=== PATIENT | female | born 1935 | race Caucasian/White ===

== ENCOUNTER 2019-08-02 20:30 | Inpatient (IN) | payer MEDICARE, OTHER ==
[~2019-08-02] VITALS: Ht 157.5 cm; Wt 50.1 kg
[2019-08-02] MEDS ORDERED: PANT20TA2 PO (21:23)
[2019-08-02] MEDS ORDERED: FERR324T5 PO (21:24)
[2019-08-02] MEDS ORDERED: CALC-451 PO (21:30)
[2019-08-02] MEDS ORDERED: PRED10TA14 PO (21:31)
[2019-08-02] MEDS ORDERED: LEVO100T5 PO (21:32)
[2019-08-02] MEDS ORDERED: FURO40TA6 PO (21:33)
[2019-08-02] MEDS ORDERED: POTA20PA25 PO (21:33)
--- NOTE | 2019-08-02 22:13 | NUR ---
PT RESTING COMFORTABLY. FAMILY AT BEDSIDE. MONITOR IN PLACE.
[2019-08-02 23:55] VITALS: BP 109/57
[2019-08-03] MEDS ORDERED: TRAZODONE 50MG TABLET PO PRN
[2019-08-03] MEDS ORDERED: LIDODERM 5% PATCH TD PRN
[2019-08-03] MEDS ORDERED: ONDANSETRON ODT 4 MG PO PRN
[2019-08-03] MEDS ORDERED: DOCUSATE 100 MG CAPSULE PO PRN
[2019-08-03] MEDS ORDERED: CALCIUM/VITAMIN D3 250-125 TABLET PO SCH (01:00)
[2019-08-03] MEDS ORDERED: PANT40TA5 PO (01:36)
[2019-08-03 03:33] VITALS: BP 97/58
[2019-08-03 05:23] LABS: BASOPHILS # (AUTO) 0.02 x10^3/uL (0-0.1); BASOPHILS % (AUTO) 0 % (0-1); EOSINOPHILS # (AUTO) 0.29 x10^3/uL (0-0.4); EOSINOPHILS % (AUTO) 4 % (1-7); LYMPHOCYTES # (AUTO) 0.46 x10^3/uL (1-3.4); LYMPHOCYTES % (AUTO) 6 % (22-44); MD NO; MEAN CORPUSCULAR HEMOGLOBIN 32.4 pg (27.0-34.8); MEAN CORPUSCULAR HGB CONC 32.8 g/dL (32.4-35.8); MEAN CORPUSCULAR VOLUME 98.8 fL (80-100); MONOCYTES # (AUTO) 0.26 x10^3/uL (0.2-0.8); MONOCYTES % (AUTO) 4 % (2-9); NEUTROPHILS # (AUTO) 6.17 x10^3/uL (1.8-6.8); NEUTROPHILS % (AUTO) 86 % (42-75); PLATELET COUNT 256 x10^3/uL (130-400); RED CELL DISTRIBUTION WIDTH 13.8 % (9.6-15.2)
[2019-08-03 05:36] LABS: ANION GAP 12 mmol/L (5-15); CALCIUM 7.5 mg/dL (8.5-10.1); CHLORIDE 105 mmol/L (98-107); CREATININE 1.27 mg/dL (0.55-1.02)
[2019-08-03 07:14] VITALS: BP 118/65
[2019-08-03] MEDS: PANTOPRAZOLE 20MG TABLET PO SCH (08:14)
[2019-08-03] MEDS: LEVOTHYROXINE 100 MCG TABLET PO SCH (08:14)
[2019-08-03] MEDS: POTASSIUM CHLORIDE 20 MEQ PACKET PO SCH (08:15)
[2019-08-03] MEDS: FUROSEMIDE 20 MG/2 ML IV SCH ×2 (08:15→16:37)
[2019-08-03] MEDS: FERROUS SULFATE 325 MG TABLET PO SCH (08:15)
[2019-08-03 10:10] VITALS: BP 117/73
[2019-08-03 11:11] LABS: CLOSTRIDIUM DIFFICILE ANTIGEN NEGATIVE
[2019-08-03 11:13] LABS: CLOSTRIDIUM DIFFICILE TOXIN INDETERMINATE (Negative)
[2019-08-03 12:47] VITALS: BP 119/70
[2019-08-03 12:52] LABS: CLOSTRIDIUM DIFFICILE TOXIN ANTIG NEG/TOXIN POS (Negative)
[2019-08-03 12:56] LABS: CLOSTRIDIUM DIFFICILE ANTIGEN ANTIG NEG/TOXIN POS
[2019-08-03] MEDS: VANCOMYCIN 50 MG/ML ORAL SUSP PO SCH ×2 (15:38→22:16)
[2019-08-03 16:36] VITALS: BP 109/65
[2019-08-03 19:51] VITALS: BP 127/66
[2019-08-04 01:34] VITALS: BP 99/60
[2019-08-04] MEDS: VANCOMYCIN 50 MG/ML ORAL SUSP PO SCH ×3 (03:55→15:08)
[2019-08-04 05:02] LABS: BASOPHILS # (AUTO) 0.01 x10^3/uL (0-0.1); BASOPHILS % (AUTO) 0 % (0-1); EOSINOPHILS # (AUTO) 0.17 x10^3/uL (0-0.4); EOSINOPHILS % (AUTO) 3 % (1-7); LYMPHOCYTES # (AUTO) 0.65 x10^3/uL (1-3.4); LYMPHOCYTES % (AUTO) 11 % (22-44); MD NO; MEAN CORPUSCULAR HEMOGLOBIN 32.5 pg (27.0-34.8); MEAN CORPUSCULAR HGB CONC 32.7 g/dL (32.4-35.8); MEAN CORPUSCULAR VOLUME 99.2 fL (80-100); MEAN PLATELET VOLUME 7.7 fL (7.4-10.4); MONOCYTES # (AUTO) 0.35 x10^3/uL (0.2-0.8); MONOCYTES % (AUTO) 6 % (2-9); NEUTROPHILS # (AUTO) 4.89 x10^3/uL (1.8-6.8); NEUTROPHILS % (AUTO) 80 % (42-75); PLATELET COUNT 287 x10^3/uL (130-400); RED BLOOD COUNT 3.45 x10^6/uL (3.82-5.3); RED CELL DISTRIBUTION WIDTH 13.6 % (9.6-15.2)
[2019-08-04 05:11] LABS: ALANINE AMINOTRANSFERASE 11 U/L (12-78); ALBUMIN 2.2 g/dL (3.4-5.0); ANION GAP 8 mmol/L (5-15); CHLORIDE 103 mmol/L (98-107); CREATININE 1.19 mg/dL (0.55-1.02)
[2019-08-04 05:19] LABS: ALKALINE PHOSPHATASE 76 U/L (45-117); BILIRUBIN,TOTAL 0.5 mg/dL (0.2-1.0); TOTAL PROTEIN 5.5 g/dL (6.4-8.2)
[2019-08-04 07:42] VITALS: BP 120/68
[2019-08-04] MEDS: POTASSIUM CHLORIDE 20 MEQ PACKET PO SCH (07:44)
[2019-08-04] MEDS: LEVOTHYROXINE 100 MCG TABLET PO SCH (07:44)
[2019-08-04] MEDS: PANTOPRAZOLE 20MG TABLET PO SCH (07:44)
[2019-08-04] MEDS: FUROSEMIDE 20 MG/2 ML IV SCH ×2 (07:45→16:27)
[2019-08-04] MEDS: FERROUS SULFATE 325 MG TABLET PO SCH (07:45)
[2019-08-04] MEDS ORDERED: LISINOPRIL 10 MG TABLET PO SCH (09:00)
[2019-08-04] MEDS: HEPARIN 5,000 UNITS/ML, 1ML SQ SCH ×2 (15:08→22:46)
[2019-08-04 15:11] VITALS: BP 110/66
[2019-08-04] MEDS: POTASSIUM CHLORIDE 20 MEQ TAB.ER.PRT PO SCH (16:27)
[2019-08-04] MEDS ORDERED: AZITHROMYCIN 500 MG TABLET PO ONE (17:00)
[2019-08-04] MEDS: AMPICILLIN/SULBACTAM 3 GM in SODIUM CHLORIDE 0.9% 100 ML IV SCH (18:06)
[2019-08-04 19:19] VITALS: BP 115/66
[2019-08-05] MEDS: AMPICILLIN/SULBACTAM 3 GM in SODIUM CHLORIDE 0.9% 100 ML IV SCH ×4 (00:01→17:53)
[2019-08-05 00:38] VITALS: BP 103/63
[2019-08-05 05:20] LABS: BASOPHILS # (AUTO) 0.04 x10^3/uL (0-0.1); BASOPHILS % (AUTO) 1 % (0-1); EOSINOPHILS # (AUTO) 0.22 x10^3/uL (0-0.4); EOSINOPHILS % (AUTO) 3 % (1-7); LYMPHOCYTES # (AUTO) 0.92 x10^3/uL (1-3.4); LYMPHOCYTES % (AUTO) 14 % (22-44); MD NO; MEAN CORPUSCULAR HEMOGLOBIN 32.3 pg (27.0-34.8); MEAN CORPUSCULAR HGB CONC 32.8 g/dL (32.4-35.8); MEAN CORPUSCULAR VOLUME 98.6 fL (80-100); MEAN PLATELET VOLUME 8.3 fL (7.4-10.4); MONOCYTES # (AUTO) 0.45 x10^3/uL (0.2-0.8); MONOCYTES % (AUTO) 7 % (2-9); NEUTROPHILS % (AUTO) 76 % (42-75); PLATELET COUNT 296 x10^3/uL (130-400); RED BLOOD COUNT 3.43 x10^6/uL (3.82-5.3); RED CELL DISTRIBUTION WIDTH 13.7 % (9.6-15.2)
[2019-08-05 05:30] LABS: ANION GAP 5 mmol/L (5-15); CALCIUM 8.1 mg/dL (8.5-10.1); CHLORIDE 107 mmol/L (98-107); CREATININE 1.02 mg/dL (0.55-1.02)
[2019-08-05] MEDS: HEPARIN 5,000 UNITS/ML, 1ML SQ SCH ×3 (06:29→22:07)
[2019-08-05 06:53] VITALS: BP 125/69
[2019-08-05] MEDS: POTASSIUM CHLORIDE 20 MEQ PACKET PO SCH (08:50)
[2019-08-05] MEDS: AZITHROMYCIN 250 MG TABLET PO SCH (08:50)
[2019-08-05] MEDS: FERROUS SULFATE 325 MG TABLET PO SCH (08:50)
[2019-08-05] MEDS: FUROSEMIDE 20 MG/2 ML IV SCH (08:50)
[2019-08-05] MEDS: POTASSIUM CHLORIDE 20 MEQ TAB.ER.PRT PO SCH (08:50)
[2019-08-05] MEDS: PANTOPRAZOLE 20MG TABLET PO SCH (08:50)
[2019-08-05] MEDS: LEVOTHYROXINE 100 MCG TABLET PO SCH (08:50)
[2019-08-05 14:14] VITALS: BP 102/64
[2019-08-05] MEDS: NEUTRA PHOS K 250 MG TABLET PO SCH ×2 (16:00→20:29)
[2019-08-05 18:57] VITALS: BP 109/68
[2019-08-06] MEDS: AMPICILLIN/SULBACTAM 3 GM in SODIUM CHLORIDE 0.9% 100 ML IV SCH ×3 (00:10→12:00)
[2019-08-06 02:20] VITALS: BP 104/65
[2019-08-06 05:12] LABS: BASOPHILS # (AUTO) 0.02 x10^3/uL (0-0.1); BASOPHILS % (AUTO) 0 % (0-1); EOSINOPHILS # (AUTO) 0.28 x10^3/uL (0-0.4); EOSINOPHILS % (AUTO) 4 % (1-7); LYMPHOCYTES # (AUTO) 1.08 x10^3/uL (1-3.4); LYMPHOCYTES % (AUTO) 15 % (22-44); MD NO; MEAN CORPUSCULAR HEMOGLOBIN 32.4 pg (27.0-34.8); MEAN CORPUSCULAR HGB CONC 32.9 g/dL (32.4-35.8); MEAN CORPUSCULAR VOLUME 98.7 fL (80-100); MEAN PLATELET VOLUME 7.6 fL (7.4-10.4); MONOCYTES # (AUTO) 0.41 x10^3/uL (0.2-0.8); MONOCYTES % (AUTO) 6 % (2-9); NEUTROPHILS # (AUTO) 5.23 x10^3/uL (1.8-6.8); NEUTROPHILS % (AUTO) 75 % (42-75); PLATELET COUNT 322 x10^3/uL (130-400); RED CELL DISTRIBUTION WIDTH 14.1 % (9.6-15.2)
[2019-08-06 05:21] LABS: CHLORIDE 108 mmol/L (98-107)
[2019-08-06 05:34] LABS: ANION GAP 6 mmol/L (5-15); CALCIUM 7.7 mg/dL (8.5-10.1); CHOL/HDL RATIO 7.6; CHOLESTEROL, TOTAL 137 mg/dL (140-239); CREATININE 0.95 mg/dL (0.55-1.02); HDL CHOL % 13 % (28-40); HDL CHOLESTEROL (DIRECT) 18 mg/dL (40-60); LDL CHOLESTEROL,CALCULATED 90 mg/dL (54-169); TRIGLYCERIDES 145 mg/dL (50-200); VLDL CHOLESTEROL 29 mg/dL (0-25)
[2019-08-06] MEDS ORDERED: ASPIRIN 81 MG TABLET EC PO SCH (06:00)
[2019-08-06] MEDS ORDERED: OMEPRAZOLE 20 MG CAPSULE.DR PO SCH (06:00)
[2019-08-06] MEDS ORDERED: ACETAMINOPHEN 325 MG TABLET PO PRN (06:00)
[2019-08-06] MEDS ORDERED: ACETAMINOPHEN 325 MG TABLET ONE (06:01)
[2019-08-06] MEDS: HEPARIN 5,000 UNITS/ML, 1ML SQ SCH (06:03)
[2019-08-06 06:54] VITALS: BP 104/63
[2019-08-06] MEDS: LEVOTHYROXINE 100 MCG TABLET PO SCH (07:47)
[2019-08-06] MEDS: PANTOPRAZOLE 20MG TABLET PO SCH (07:48)
[2019-08-06] MEDS: FERROUS SULFATE 325 MG TABLET PO SCH (07:48)
[2019-08-06] MEDS: NEUTRA PHOS K 250 MG TABLET PO SCH (07:48)
[2019-08-06] MEDS: AZITHROMYCIN 250 MG TABLET PO SCH (07:48)
[2019-08-06] MEDS ORDERED: FUROSEMIDE 20 MG TABLET PO SCH (09:00)
[2019-08-06] MEDS ORDERED: POTASSIUM CHLORIDE 20 MEQ PACKET PO SCH (09:00)
[2019-08-06] MEDS ORDERED: AZIT250T89 PO (12:28)
[2019-08-06] MEDS ORDERED: AMOX1TAB61 PO (12:28)
[2019-08-06] MEDS ORDERED: ATOR20TA37 PO (12:28)
[2019-08-06 14:00] VITALS: BP 106/64
[2019-08-06] MEDS ORDERED: POTA20PA25 PO (14:24)
[2019-08-06] MEDS ORDERED: FURO40TA6 PO (14:24)
[2019-08-06] MEDS ORDERED: ATORVASTATIN 20 MG TABLET PO SCH (21:00)
== END 2019-08-06 15:15 | disposition home health service (06) | DRG 177 ==
LOC: ED 22:48 → EDIP 22:50 → 4WST 23:36 → DCLOUNGE 08-06 14:32
PROVIDERS: ADMIT Family Medicine; ATTEND Internal Medicine
DX: J15.6 Pneumonia due to other Gram-negative bacteria (principal); I50.33 Acute on chronic diastolic (congestive) heart failure; J96.00 Acute respiratory failure, unspecified whether with hypoxia or hypercapnia; L03.116 Cellulitis of left lower limb; I13.0 Hypertensive heart and chronic kidney disease with heart failure and stage 1 through stage 4 chronic kidney disease, or unspecified chronic kidney disease; J44.0 Chronic obstructive pulmonary disease with (acute) lower respiratory infection; N17.9 Acute kidney failure, unspecified; J18.9 Pneumonia, unspecified organism; M06.9 Rheumatoid arthritis, unspecified; M35.3 Polymyalgia rheumatica; E87.6 Hypokalemia; E03.9 Hypothyroidism, unspecified; E61.1 Iron deficiency; F17.200 Nicotine dependence, unspecified, uncomplicated; I27.20 Pulmonary hypertension, unspecified; I35.0 Nonrheumatic aortic (valve) stenosis; I73.9 Peripheral vascular disease, unspecified; K21.9 Gastro-esophageal reflux disease without esophagitis; M81.0 Age-related osteoporosis without current pathological fracture; N18.9 Chronic kidney disease, unspecified; M19.90 Unspecified osteoarthritis, unspecified site; T50.2X5A Adverse effect of carbonic-anhydrase inhibitors, benzothiadiazides and other diuretics, initial encounter; Y92.89 Other specified places as the place of occurrence of the external cause; Z60.2 Problems related to living alone; B96.89 Other specified bacterial agents as the cause of diseases classified elsewhere; Z79.899 Other long term (current) drug therapy
CPT/HCPCS: 36415; 71045; 80048; 80053; 80061; 83735; 84100; 84145; 84439; 84443; 85025; 87070; 87205; 87324; 87493; 93005; 93306; 93922; 93925; 99285; G0378; J0295; J1644; J3370; J1940; J7512

== ENCOUNTER → 2019-09-21 | Outpatient (CLI) | payer MEDICARE, OTHER ==
[~2019-09-21] MED LIST: AMOX1TAB61 PO; ATOR20TA37 PO; AZIT250T89 PO; CALC-451 PO; FERR324T5 PO; FURO40TA6 PO; LEVO100T5 PO; PANT20TA2 PO; PANT40TA5 PO; POTA20PA25 PO; PRED10TA14 PO
== END | disposition home or self-care (01) ==
LOC: RAD 17:06
PROVIDERS: ATTEND Internal Medicine
DX: M17.12 Unilateral primary osteoarthritis, left knee (principal)

== ENCOUNTER 2020-02-09 10:06 | Outpatient (CLI) | payer MEDICARE, OTHER ==
[~2020-02-09 10:06] MED LIST changes: -PANT40TA5 PO; +PANT40TA6 PO
[2020-02-13] MEDS ORDERED: ASPI-496 PO (01:32)
[2020-02-13] MEDS ORDERED: OMEP40CA42 PO (01:32)
[2020-02-13] MEDS ORDERED: FURO40TA6 PO (01:32)
[2020-02-13] MEDS ORDERED: POTA20TA91 PO (01:32)
[2020-02-13] MEDS ORDERED: CALC-492 PO (01:32)
[2020-02-13] MEDS ORDERED: MULT-257 PO (01:32)
[2020-02-13] MEDS ORDERED: CHOL10003 PO (01:32)
[2020-02-13] MEDS ORDERED: ACET325S PO (02:53)
[2020-02-13] MEDS ORDERED: POLY454P4 PO (02:53)
[2020-02-13] MEDS ORDERED: PEG15DRO2 OP (02:53)
[2020-02-17] MEDS ORDERED: PRED5TAB PO (12:09)
== END 2020-02-09 23:59 | disposition home or self-care (01) ==
LOC: CFH 10:06
PROVIDERS: ATTEND Internal Medicine Cardiovascular Disease
DX: I08.3 Combined rheumatic disorders of mitral, aortic and tricuspid valves (principal)
CPT/HCPCS: 93306

== ENCOUNTER 2020-02-20 04:51 | Emergency (ER) | payer MEDICARE, OTHER ==
[~2020-02-20] VITALS: Ht 167.6 cm; Wt 55.0 kg
[~2020-02-20 04:51] MED LIST changes: +ACET325S PO; +ASPI-496 PO; +CALC-492 PO; +CHOL10003 PO; +MULT-257 PO; +OMEP40CA42 PO; +PANT40TA5 PO; -PANT40TA6 PO; +PEG15DRO2 OP; +POLY454P4 PO; +POTA20TA91 PO; +PRED5TAB PO
[2020-02-20] MEDS ORDERED: SODIUM CHLORIDE FLUSH 10ML SYR IVF ONE (05:30)
[2020-02-20 06:09] LABS: MICROSCOPIC NOT IND
--- NOTE | 2020-02-20 06:10 | NUR ---
IV STARTED IN RAC. BLOOD CULTURES DRAWN AND SENT. STRAIGHT CATH PERFORMED, PT TOLERATED VERY WELL. NO SWELLING, REDNESS, OR TENDERNESS NOTED TO URETHRA OR SURROUNDING STRUCTURES. PT PROVIDED WITH WARM BLANKETS. DENIES ANY FURTHER NEEDS OR CONCERNS, CALL LIGHT IN REACH.
[2020-02-20 06:30] LABS: BASOPHILS # (AUTO) 0.04 x10^3/uL (0-0.1); BASOPHILS % (AUTO) 0 % (0-1); EOSINOPHILS # (AUTO) 0.35 x10^3/uL (0-0.4); EOSINOPHILS % (AUTO) 3 % (1-7); LYMPHOCYTES # (AUTO) 1.77 x10^3/uL (1-3.4); LYMPHOCYTES % (AUTO) 17 % (22-44); MD NO; MEAN CORPUSCULAR HEMOGLOBIN 33.4 pg (27.0-34.8); MEAN CORPUSCULAR HGB CONC 33.3 g/dL (32.4-35.8); MEAN CORPUSCULAR VOLUME 100.4 fL (80-100); MEAN PLATELET VOLUME 6.9 fL (7.4-10.4); MONOCYTES # (AUTO) 1.04 x10^3/uL (0.2-0.8); MONOCYTES % (AUTO) 10 % (2-9); NEUTROPHILS # (AUTO) 7.55 x10^3/uL (1.8-6.8); NEUTROPHILS % (AUTO) 70 % (42-75); PLATELET COUNT 487 x10^3/uL (130-400); RED BLOOD COUNT 2.97 x10^6/uL (3.82-5.3); RED CELL DISTRIBUTION WIDTH 15.1 % (9.6-15.2)
[2020-02-20 06:39] LABS: ALBUMIN 2.4 g/dL (3.4-5.0); ANION GAP 8 mmol/L (5-15); CALCIUM 7.9 mg/dL (8.5-10.1); CHLORIDE 109 mmol/L (98-107)
[2020-02-20 06:43] LABS: ALANINE AMINOTRANSFERASE 146 U/L (12-78); ALKALINE PHOSPHATASE 91 U/L (45-117); BILIRUBIN,TOTAL 0.5 mg/dL (0.2-1.0); CREATININE 0.93 mg/dL (0.55-1.02)
--- NOTE | 2020-02-20 06:59 | NUR ---
Took report from Renuka Barber RN, assume care at this time.
[2020-02-20] MEDS ORDERED: POTASSIUM CHLORIDE 20 MEQ TAB.ER.PRT ONE (07:21)
[2020-02-20] MEDS ORDERED: POTASSIUM CHLORIDE 20 MEQ TAB.ER.PRT PO ONE (07:30)
--- NOTE | 2020-02-20 08:15 | NUR ---
CALLED [facility] TO SET UP TRANSPORTATION.
[2020-02-20 08:44] VITALS: BP 119/54
== END 2020-02-20 08:41 | disposition home or self-care (01) ==
LOC: ED 06:42
DX: R33.9 Retention of urine, unspecified (principal); R10.9 Unspecified abdominal pain; R30.0 Dysuria; E03.9 Hypothyroidism, unspecified; M19.90 Unspecified osteoarthritis, unspecified site
CPT/HCPCS: 36415; 51702; 80053; 81003; 83605; 85025; 87040; 99284

== ENCOUNTER 2020-03-05 03:07 | Inpatient (IN) | payer MEDICARE, OTHER ==
[~2020-03-05] VITALS: Ht 167.6 cm; Wt 48.6 kg
--- NOTE | 2020-03-05 03:15 | NUR ---
JAMES RUSSELL FROM [facility] FOR INABILITY TO URINATE FOR APPROX 24 HOURS. LOWER AND PAIN RATED 7/10. BLADDER SCAN IN ED REVEALS APPROX 340ML URINE IN BLADDER. Addendum: 03/05/20 at 0342 by BDICECCO lower abd pain rated 7/10
[2020-03-05] MEDS ORDERED: MORPHINE SULFATE 4 MG/ML, 1ML IVPush ONE (05:00)
[2020-03-05] MEDS ORDERED: ONDANSETRON 2MG/ML, 2ML IVPush ONE (05:00)
[2020-03-05 05:03] LABS: BASOPHILS # (AUTO) 0.02 x10^3/uL (0-0.1); BASOPHILS % (AUTO) 0 % (0-1); EOSINOPHILS # (AUTO) 0.27 x10^3/uL (0-0.4); EOSINOPHILS % (AUTO) 3 % (1-7); LYMPHOCYTES # (AUTO) 2.06 x10^3/uL (1-3.4); LYMPHOCYTES % (AUTO) 24 % (22-44); MD NO; MEAN CORPUSCULAR HEMOGLOBIN 33.5 pg (27.0-34.8); MEAN CORPUSCULAR HGB CONC 33.1 g/dL (32.4-35.8); MEAN CORPUSCULAR VOLUME 101.2 fL (80-100); MEAN PLATELET VOLUME 7.9 fL (7.4-10.4); MONOCYTES # (AUTO) 0.74 x10^3/uL (0.2-0.8); MONOCYTES % (AUTO) 9 % (2-9); NEUTROPHILS % (AUTO) 65 % (42-75); PLATELET COUNT 375 x10^3/uL (130-400); RED BLOOD COUNT 3.18 x10^6/uL (3.82-5.3)
--- NOTE | 2020-03-05 05:03 | NUR ---
bennett inserted and draining clear/yellow urine. pt states she is still having pain in lower abd. orders recieved for pain meds and pt to be medicated for pain
[2020-03-05 05:06] LABS: MICROSCOPIC NOT IND
[2020-03-05] MEDS ORDERED: TAMS-11 PO (05:07)
[2020-03-05] MEDS ORDERED: MORPHINE SULFATE 4 MG/ML, 1ML ONE (05:08)
[2020-03-05] MEDS ORDERED: ONDANSETRON 2MG/ML, 2ML ONE (05:09)
[2020-03-05 05:13] LABS: ANION GAP 6 mmol/L (5-15); CALCIUM 8.3 mg/dL (8.5-10.1); CHLORIDE 105 mmol/L (98-107); CREATININE 1.11 mg/dL (0.55-1.02)
--- NOTE | 2020-03-05 07:04 | NUR ---
report received from shawnee hurley.
--- NOTE | 2020-03-05 07:46 | NUR ---
REPORT GIVEN TO VERNA LI. ALL QUESTIONS ANSWERED.
[2020-03-05] MEDS ORDERED: ONDANSETRON 2MG/ML, 2ML IVPush PRN (08:00)
[2020-03-05] MEDS: OMEPRAZOLE 20 MG CAPSULE.DR PO SCH (08:00)
[2020-03-05] MEDS ORDERED: MELATONIN 5 MG TABLET PO PRN (08:00)
[2020-03-05] MEDS ORDERED: ENALAPRILAT 1.25 MG/ML, 2ML IVPush PRN (08:00)
[2020-03-05] MEDS ORDERED: ONDANSETRON ODT 4 MG PO PRN (08:00)
[2020-03-05] MEDS: MULTIVITAMIN 1 TABLET PO SCH (08:56)
[2020-03-05] MEDS: CHOLECALCIFEROL 1,000 UNIT TABLET PO SCH (08:57)
[2020-03-05] MEDS: DOCUSATE 100 MG CAPSULE PO SCH ×2 (08:57→21:23)
[2020-03-05] MEDS: LEVOTHYROXINE 100 MCG TABLET PO SCH (09:00)
[2020-03-05] MEDS: TAMSULOSIN 0.4 MG CAP.ER.24H PO SCH (09:00)
[2020-03-05] MEDS: LACTATED RINGERS 1,000 ML IV SCH ×2 (09:00→22:05)
[2020-03-05 09:59] VITALS: BP 107/63
[2020-03-05 12:19] VITALS: BP 92/52
[2020-03-05 19:12] VITALS: BP 114/69
[2020-03-05] MEDS: ATORVASTATIN 20 MG TABLET PO SCH (21:23)
[2020-03-06 02:05] VITALS: BP 112/69
[2020-03-06 04:47] LABS: BASOPHILS # (AUTO) 0.03 x10^3/uL (0-0.1); BASOPHILS % (AUTO) 0 % (0-1); EOSINOPHILS # (AUTO) 0.41 x10^3/uL (0-0.4); EOSINOPHILS % (AUTO) 5 % (1-7); LYMPHOCYTES # (AUTO) 1.73 x10^3/uL (1-3.4); LYMPHOCYTES % (AUTO) 19 % (22-44); MD NO; MEAN CORPUSCULAR HEMOGLOBIN 33.3 pg (27.0-34.8); MEAN CORPUSCULAR VOLUME 100.9 fL (80-100); MONOCYTES # (AUTO) 0.63 x10^3/uL (0.2-0.8); MONOCYTES % (AUTO) 7 % (2-9); NEUTROPHILS % (AUTO) 69 % (42-75); PLATELET COUNT 333 x10^3/uL (130-400); RED BLOOD COUNT 2.93 x10^6/uL (3.82-5.3); RED CELL DISTRIBUTION WIDTH 14.6 % (9.6-15.2)
[2020-03-06 05:02] LABS: ANION GAP 4 mmol/L (5-15); CALCIUM 8.5 mg/dL (8.5-10.1); CHLORIDE 107 mmol/L (98-107)
[2020-03-06 05:04] LABS: CREATININE 1.03 mg/dL (0.55-1.02)
[2020-03-06] MEDS: OMEPRAZOLE 20 MG CAPSULE.DR PO SCH (06:41)
[2020-03-06 07:45] VITALS: BP 148/80
[2020-03-06] MEDS: DOCUSATE 100 MG CAPSULE PO SCH ×2 (07:56→20:01)
[2020-03-06] MEDS: CHOLECALCIFEROL 1,000 UNIT TABLET PO SCH (07:56)
[2020-03-06] MEDS: LEVOTHYROXINE 100 MCG TABLET PO SCH (07:56)
[2020-03-06] MEDS: TAMSULOSIN 0.4 MG CAP.ER.24H PO SCH (07:56)
[2020-03-06] MEDS: MULTIVITAMIN 1 TABLET PO SCH (07:56)
[2020-03-06 15:00] VITALS: BP 98/58
[2020-03-06 19:39] VITALS: BP 112/65
[2020-03-06] MEDS: ATORVASTATIN 20 MG TABLET PO SCH (20:01)
[2020-03-07 01:14] VITALS: BP 124/71
[2020-03-07] MEDS: OMEPRAZOLE 20 MG CAPSULE.DR PO SCH (05:42)
[2020-03-07 08:29] VITALS: BP 113/68
[2020-03-07] MEDS ORDERED: POLYETHYLENE GLYCOL 17 GM PACKET PO ONE (09:00)
[2020-03-07] MEDS: TAMSULOSIN 0.4 MG CAP.ER.24H PO SCH (09:32)
[2020-03-07] MEDS: MULTIVITAMIN 1 TABLET PO SCH (09:32)
[2020-03-07] MEDS: CHOLECALCIFEROL 1,000 UNIT TABLET PO SCH (09:32)
[2020-03-07] MEDS: DOCUSATE 100 MG CAPSULE PO SCH ×2 (09:32→20:08)
[2020-03-07] MEDS: LEVOTHYROXINE 100 MCG TABLET PO SCH (09:32)
[2020-03-07 10:43] LABS: % IRON SATURATION 14 % (20-55); IRON LEVEL 47 mcg/dL (50-170); TOTAL IRON BINDING CAPACITY 346 mcg/dL (250-450)
[2020-03-07 13:29] VITALS: BP 90/54
[2020-03-07 19:18] VITALS: BP 101/62
[2020-03-07] MEDS: ATORVASTATIN 20 MG TABLET PO SCH (20:08)
[2020-03-08 00:51] VITALS: BP 115/72
[2020-03-08] MEDS: OMEPRAZOLE 20 MG CAPSULE.DR PO SCH (05:54)
[2020-03-08 07:36] VITALS: BP 101/61
[2020-03-08] MEDS: TAMSULOSIN 0.4 MG CAP.ER.24H PO SCH (08:55)
[2020-03-08] MEDS: MULTIVITAMIN 1 TABLET PO SCH (08:55)
[2020-03-08] MEDS: CHOLECALCIFEROL 1,000 UNIT TABLET PO SCH (08:55)
[2020-03-08] MEDS: DOCUSATE 100 MG CAPSULE PO SCH ×2 (08:56→20:27)
[2020-03-08] MEDS: LEVOTHYROXINE 100 MCG TABLET PO SCH (08:56)
[2020-03-08 13:13] VITALS: BP 94/58
[2020-03-08] MEDS: ACETAMINOPHEN 325 MG TABLET PO PRN (18:20)
[2020-03-08 19:08] VITALS: BP 105/65
[2020-03-08] MEDS: ATORVASTATIN 20 MG TABLET PO SCH (20:27)
[2020-03-08] MEDS ORDERED: MAGNESIUM CITRATE 300ML ORAL SOL PO PRN (21:00)
[2020-03-09 01:25] VITALS: BP 112/72
[2020-03-09] MEDS: OMEPRAZOLE 20 MG CAPSULE.DR PO SCH (06:04)
[2020-03-09 07:13] VITALS: BP 110/57
[2020-03-09] MEDS: LEVOTHYROXINE 100 MCG TABLET PO SCH (09:05)
[2020-03-09] MEDS: MULTIVITAMIN 1 TABLET PO SCH (09:05)
[2020-03-09] MEDS: DOCUSATE 100 MG CAPSULE PO SCH ×2 (09:05→21:00)
[2020-03-09] MEDS: CHOLECALCIFEROL 1,000 UNIT TABLET PO SCH (09:05)
[2020-03-09] MEDS: TAMSULOSIN 0.4 MG CAP.ER.24H PO SCH (09:05)
[2020-03-09] MEDS: FERROUS GLUCONATE 324 MG TABLET PO SCH ×2 (09:05→16:45)
[2020-03-09 14:30] VITALS: BP 104/58
[2020-03-09 19:28] VITALS: BP 101/64
[2020-03-09] MEDS: ATORVASTATIN 20 MG TABLET PO SCH (19:45)
[2020-03-10 01:00] VITALS: BP 120/73
[2020-03-10] MEDS: OMEPRAZOLE 20 MG CAPSULE.DR PO SCH (06:19)
[2020-03-10 06:46] VITALS: BP 108/67
[2020-03-10] MEDS: DOCUSATE 100 MG CAPSULE PO SCH ×2 (08:39→21:00)
[2020-03-10] MEDS: CHOLECALCIFEROL 1,000 UNIT TABLET PO SCH (08:39)
[2020-03-10] MEDS: TAMSULOSIN 0.4 MG CAP.ER.24H PO SCH (08:39)
[2020-03-10] MEDS: LEVOTHYROXINE 100 MCG TABLET PO SCH (08:39)
[2020-03-10] MEDS: MULTIVITAMIN 1 TABLET PO SCH (08:39)
[2020-03-10] MEDS: FERROUS GLUCONATE 324 MG TABLET PO SCH ×2 (08:39→17:59)
[2020-03-10 13:38] VITALS: BP 112/69
[2020-03-10] MEDS: ATORVASTATIN 20 MG TABLET PO SCH (19:22)
[2020-03-10 20:10] VITALS: BP 111/72
[2020-03-11 01:32] VITALS: BP 127/75
[2020-03-11] MEDS: OMEPRAZOLE 20 MG CAPSULE.DR PO SCH (06:44)
[2020-03-11 07:25] VITALS: BP 144/82
[2020-03-11] MEDS: FERROUS GLUCONATE 324 MG TABLET PO SCH ×2 (08:28→17:14)
[2020-03-11] MEDS: TAMSULOSIN 0.4 MG CAP.ER.24H PO SCH (08:28)
[2020-03-11] MEDS: LEVOTHYROXINE 100 MCG TABLET PO SCH (08:28)
[2020-03-11] MEDS: CHOLECALCIFEROL 1,000 UNIT TABLET PO SCH (08:28)
[2020-03-11] MEDS: DOCUSATE 100 MG CAPSULE PO SCH ×2 (08:28→19:41)
[2020-03-11] MEDS: MULTIVITAMIN 1 TABLET PO SCH (08:28)
[2020-03-11 14:35] VITALS: BP 113/73
[2020-03-11 19:28] VITALS: BP 97/63
[2020-03-11] MEDS: ATORVASTATIN 20 MG TABLET PO SCH (19:40)
[2020-03-12 01:09] VITALS: BP 126/62
[2020-03-12] MEDS: OMEPRAZOLE 20 MG CAPSULE.DR PO SCH (05:58)
[2020-03-12 07:32] VITALS: BP 133/73
[2020-03-12] MEDS: MULTIVITAMIN 1 TABLET PO SCH (08:19)
[2020-03-12] MEDS: FERROUS GLUCONATE 324 MG TABLET PO SCH ×2 (08:19→17:30)
[2020-03-12] MEDS: TAMSULOSIN 0.4 MG CAP.ER.24H PO SCH (08:20)
[2020-03-12] MEDS: LEVOTHYROXINE 100 MCG TABLET PO SCH (08:20)
[2020-03-12] MEDS: CHOLECALCIFEROL 1,000 UNIT TABLET PO SCH (08:20)
[2020-03-12] MEDS: DOCUSATE 100 MG CAPSULE PO SCH ×2 (08:21→20:13)
[2020-03-12] MEDS: ACETAMINOPHEN 325 MG TABLET PO PRN (12:58)
[2020-03-12] MEDS ORDERED: FERR325T16 PO (13:14)
[2020-03-12 15:06] VITALS: BP 115/69
[2020-03-12] MEDS: ATORVASTATIN 20 MG TABLET PO SCH (20:12)
[2020-03-12 20:33] VITALS: BP 108/55
[2020-03-13 02:45] VITALS: BP 107/66
[2020-03-13] MEDS: OMEPRAZOLE 20 MG CAPSULE.DR PO SCH (05:55)
[2020-03-13 08:09] VITALS: BP 120/68
[2020-03-13] MEDS: DOCUSATE 100 MG CAPSULE PO SCH (08:30)
[2020-03-13] MEDS: FERROUS GLUCONATE 324 MG TABLET PO SCH (08:34)
[2020-03-13] MEDS: TAMSULOSIN 0.4 MG CAP.ER.24H PO SCH (08:35)
[2020-03-13] MEDS: LEVOTHYROXINE 100 MCG TABLET PO SCH (08:35)
[2020-03-13] MEDS: CHOLECALCIFEROL 1,000 UNIT TABLET PO SCH (08:35)
[2020-03-13] MEDS: MULTIVITAMIN 1 TABLET PO SCH (08:35)
== END 2020-03-13 14:00 | disposition home or self-care (01) | DRG 683 ==
LOC: ED 05:13 → EDIP 06:15 → 4NE 08:20 → 3N 03-06 11:57
PROVIDERS: ADMIT Hospitalist; ATTEND Internal Medicine
PROC: 0T9B70Z Drainage of Bladder with Drainage Device, Via Natural or Artificial Opening (ICD-10-PCS; principal; 2020-03-05)
DX: N17.0 Acute kidney failure with tubular necrosis (principal); E27.40 Unspecified adrenocortical insufficiency; R33.9 Retention of urine, unspecified; E86.0 Dehydration; D53.9 Nutritional anemia, unspecified; K59.00 Constipation, unspecified; D50.9 Iron deficiency anemia, unspecified; E03.9 Hypothyroidism, unspecified; F03.90 Unspecified dementia, unspecified severity, without behavioral disturbance, psychotic disturbance, mood disturbance, and anxiety; M81.0 Age-related osteoporosis without current pathological fracture; Z66 Do not resuscitate; M19.90 Unspecified osteoarthritis, unspecified site; Z03.818 Encounter for observation for suspected exposure to other biological agents ruled out
CPT/HCPCS: 36415; 80048; 81003; 82607; 83540; 83550; 85025; 86480; 87635; 96374; 99285; G0378; J2405; J2270; J7120; J7512

== ENCOUNTER 2020-06-27 15:22 | Emergency (ER) | payer MEDICARE, OTHER ==
[~2020-06-27] VITALS: Ht 157.5 cm; Wt 54.0 kg
[~2020-06-27 15:22] MED LIST changes: +FERR325T16 PO; -PANT40TA5 PO; +PANT40TA6 PO; +TAMS-11 PO
--- NOTE | 2020-06-27 15:48 | NUR ---
JAMES RUSSELL, PT FROM [facility], STAFF REPORTED FOUL SMELLING URINE AND SENT PT HERE FOR WORK UP. PT ARRIVES WITH PEDRAZA CATHETER IN PLACE. PT STATES PEDRAZA HAS BEEN IN FOR THREE YEARS BECAUSE SHE CANNOT URINATE. DIFFICULT TO OBTAIN INFORMATION FROM PATIENT AND NO REPORT RECIEVED FROM Y[facility]ONNE. DISCUSSED WITH PROVIDER STRAIGHT CATH ORDERED. WILL ATTEMPT TO OBTAIN MORE INFORMATION ON PEDRAZA FROM RECIEVING FACILITY PT TO BP, CONT PULSE OX.
[2020-06-27 16:00] LABS: BASOPHILS % (AUTO) 1 % (0-1); EOSINOPHILS % (AUTO) 2 % (1-7); LYMPHOCYTES % (AUTO) 7 % (22-44); MEAN CORPUSCULAR HEMOGLOBIN 31.4 pg (27.0-34.8); MEAN CORPUSCULAR HGB CONC 33.9 g/dL (32.4-35.8); MEAN PLATELET VOLUME 7.4 fL (7.4-10.4); MONOCYTES % (AUTO) 5 % (2-9); NEUTROPHILS % (AUTO) 86 % (42-75); PLATELET COUNT 312 x10^3/uL (130-400); RED BLOOD COUNT 3.57 x10^6/uL (3.82-5.3); RED CELL DISTRIBUTION WIDTH 15.6 % (9.6-15.2)
[2020-06-27] MEDS ORDERED: SODIUM CHLORIDE 0.9% 1,000ML IVBOLUS ONE (16:00)
[2020-06-27 16:04] LABS: MD NO
[2020-06-27 16:07] LABS: ALANINE AMINOTRANSFERASE 14 U/L (12-78); ALBUMIN 2.5 g/dL (3.4-5.0); ANION GAP 10 mmol/L (5-15); CALCIUM 8.9 mg/dL (8.5-10.1); CHLORIDE 104 mmol/L (98-107); CREATININE 1.13 mg/dL (0.55-1.02)
[2020-06-27 16:10] LABS: ALKALINE PHOSPHATASE 75 U/L (45-117); BILIRUBIN,TOTAL 0.9 mg/dL (0.2-1.0); TOTAL PROTEIN 6.9 g/dL (6.4-8.2)
--- NOTE | 2020-06-27 17:09 | NUR ---
NEW PEDRAZA INSERTED WITH STERILE TECHNIQUE, PT MEDICATED PER MAR. PT WITH LIMITED URINE IN PEDRAZA COLLECTION DEVICE, NOT ENOUGH FOR SAMPLE AT THIS TIME.
--- NOTE | 2020-06-27 17:35 | NUR ---
EARNEST AT PTS [facility], WOULD LIKE TO BE CALLED IF PT IS TO BE DISCHARGED HOME CELL # [phone]
[2020-06-27] MEDS ORDERED: SODIUM CHLORIDE 0.9%, 250ML IVBOLUS ONE (18:00)
[2020-06-27 18:15] LABS: MICROSCOPIC INDICATED
--- NOTE | 2020-06-27 19:17 | NUR ---
Sony from senior facility called for an update. Garden Consultant told administer that she should be getting discharge within the hour hopefully.
--- NOTE | 2020-06-27 19:33 | NUR ---
Report given to Wojciech at [facility] regarding this patient
[2020-06-27 19:44] VITALS: BP 123/62
== END 2020-06-27 20:23 | disposition home or self-care (01) ==
LOC: ED 16:54
DX: N30.00 Acute cystitis without hematuria (principal); E03.9 Hypothyroidism, unspecified; J18.9 Pneumonia, unspecified organism
CPT/HCPCS: 36415; 71045; 80053; 81001; 85025; 87077; 87086; 87186; 99284; J7030; J7050; 96360

== ENCOUNTER 2020-07-25 23:12 | Inpatient (IN) | payer MEDICARE, OTHER ==
[~2020-07-25] VITALS: Ht 160 cm; Wt 55.3 kg
[2020-07-25] MEDS ORDERED: SODIUM CHLORIDE 0.9% 1,000ML IVBOLUS ONE (23:30)
[2020-07-25] MEDS ORDERED: SODIUM CHLORIDE 0.9% 1,000 ML IV ONE (23:30)
[2020-07-25] MEDS ORDERED: SODIUM CHLORIDE FLUSH 10ML SYR IVF ONE (23:30)
--- NOTE | 2020-07-25 23:40 | NUR ---
BLOOD CULTURES X2 DRAWN AND SENT TO LAB.
--- NOTE | 2020-07-25 23:44 | NUR ---
PT JENNIFER. PER EMS PT HAD A TELEHEALTH DOCTOR SEE HER AT [facility] FOR ALTERED MENTAL STATUS. EMS REPORTS THAT PT WAS HYPOTENSIVE UPON THEIR ARRIVAL 87/47. EMS GAVE 400ML OF SALINE. PT CURRENTLY A&OX4. PT RESTING IN [facility], MONITORING IN PLACE, NADN AT THIS TIME, PER PT NO NEEDS. WCTM.
[2020-07-25 23:55] LABS: BASOPHILS % (AUTO) 0 % (0-1); EOSINOPHILS % (AUTO) 2 % (1-7); LYMPHOCYTES % (AUTO) 7 % (22-44); MEAN CORPUSCULAR HGB CONC 34.1 g/dL (32.4-35.8); MEAN PLATELET VOLUME 7.3 fL (7.4-10.4); MONOCYTES % (AUTO) 2 % (2-9); NEUTROPHILS % (AUTO) 89 % (42-75); PLATELET COUNT 320 x10^3/uL (130-400); RED BLOOD COUNT 3.12 x10^6/uL (3.82-5.3); RED CELL DISTRIBUTION WIDTH 17.2 % (9.6-15.2)
[2020-07-25 23:56] LABS: MD NO
[2020-07-26 00:16] LABS: MICROSCOPIC INDICATED
[2020-07-26 00:23] LABS: CHLORIDE 97 mmol/L (98-107)
[2020-07-26 00:28] LABS: ALANINE AMINOTRANSFERASE 18 U/L (12-78); ALBUMIN 1.7 g/dL (3.4-5.0); ALKALINE PHOSPHATASE 68 U/L (45-117); ANION GAP 10 mmol/L (5-15); BILIRUBIN,TOTAL 0.5 mg/dL (0.2-1.0); CALCIUM 7.8 mg/dL (8.5-10.1); CREATININE 0.81 mg/dL (0.55-1.02); TOTAL PROTEIN 5.6 g/dL (6.4-8.2)
[2020-07-26] MEDS ORDERED: CEFTRIAXONE PMX 1GM/50ML 50 ML ONE (00:42)
[2020-07-26] MEDS ORDERED: SODIUM CHLORIDE FLUSH 10ML SYR IVF PRN (01:00)
[2020-07-26] MEDS ORDERED: CEFTRIAXONE PMX 1GM/50ML 50 ML IVPB ONE (01:00)
[2020-07-26] MEDS: SODIUM CHLORIDE 0.9% 1,000 ML IV SCH ×2 (01:30→11:30)
[2020-07-26] MEDS ORDERED: hydrALAzine 20 MG/ML, 1ML IVPush PRN (01:30)
[2020-07-26] MEDS ORDERED: DOCUSATE 100 MG CAPSULE PO PRN (01:30)
[2020-07-26] MEDS ORDERED: ONDANSETRON 2MG/ML, 2ML IVPush PRN (01:30)
[2020-07-26] MEDS ORDERED: ONDANSETRON ODT 4 MG PO PRN (01:30)
[2020-07-26] MEDS ORDERED: BISACODYL 10 MG SUPP PR PRN (01:30)
[2020-07-26] MEDS ORDERED: PROMETHAZINE 25 MG/ML, 1ML IM PRN (01:30)
[2020-07-26] MEDS ORDERED: POLYETHYLENE GLYCOL 17 GM PACKET PO PRN (01:30)
[2020-07-26] MEDS ORDERED: OXYcodone IR 5MG TABLET PO PRN (01:30)
[2020-07-26 01:40] VITALS: BP 94/57
[2020-07-26] MEDS: ENOXAPARIN 40 MG/0.4 ML SQ SCH (01:45)
[2020-07-26 05:08] LABS: BASOPHILS % (AUTO) 0 % (0-1); EOSINOPHILS % (AUTO) 4 % (1-7); LYMPHOCYTES % (AUTO) 10 % (22-44); MEAN CORPUSCULAR HEMOGLOBIN 32.3 pg (27.0-34.8); MEAN CORPUSCULAR HGB CONC 34.5 g/dL (32.4-35.8); MEAN PLATELET VOLUME 7.8 fL (7.4-10.4); MONOCYTES % (AUTO) 2 % (2-9); NEUTROPHILS % (AUTO) 85 % (42-75); PLATELET COUNT 308 x10^3/uL (130-400); RED BLOOD COUNT 2.94 x10^6/uL (3.82-5.3); RED CELL DISTRIBUTION WIDTH 17.3 % (9.6-15.2)
[2020-07-26 05:17] LABS: MD NO
[2020-07-26 05:20] LABS: CALCIUM 7.8 mg/dL (8.5-10.1); CHLORIDE 99 mmol/L (98-107)
[2020-07-26 05:30] LABS: ALANINE AMINOTRANSFERASE 11 U/L (12-78); ALBUMIN 1.7 g/dL (3.4-5.0); ALKALINE PHOSPHATASE 68 U/L (45-117); ANION GAP 9 mmol/L (5-15); BILIRUBIN,TOTAL 0.4 mg/dL (0.2-1.0); CHOL/HDL RATIO 5.5; CHOLESTEROL, TOTAL 122 mg/dL (140-239); CREATININE 0.72 mg/dL (0.55-1.02); HDL CHOL % 18 % (28-40); HDL CHOLESTEROL (DIRECT) 22 mg/dL (40-60); LDL CHOLESTEROL,CALCULATED 82 mg/dL (54-169); LDL/HDL RATIO 3.7 (0.5-3.0); TOTAL PROTEIN 5.5 g/dL (6.4-8.2); TRIGLYCERIDES 88 mg/dL (50-200); VLDL CHOLESTEROL 18 mg/dL (0-25)
[2020-07-26 07:24] VITALS: BP 103/63
[2020-07-26] MEDS: OMEPRAZOLE 20 MG CAPSULE.DR PO SCH (09:15)
[2020-07-26] MEDS: MULTIVITAMIN 1 TABLET PO SCH (09:15)
[2020-07-26] MEDS: LEVOTHYROXINE 100 MCG TABLET PO SCH (09:16)
[2020-07-26] MEDS: TAMSULOSIN 0.4 MG CAP.ER.24H PO SCH (09:16)
[2020-07-26 12:41] VITALS: BP 95/59
[2020-07-26] MEDS: LIOTHYRONINE 5 MCG TABLET PO SCH (14:47)
[2020-07-26] MEDS: FERROUS GLUCONATE 324 MG TABLET PO SCH (17:12)
[2020-07-26] MEDS: ARTIFICIAL TEARS 15 DROP/ML BOTTLE OP SCH ×2 (17:50→21:01)
[2020-07-26] MEDS: ACETAMINOPHEN 325 MG TABLET PO PRN (19:44)
[2020-07-26] MEDS: ATORVASTATIN 20 MG TABLET PO SCH (19:44)
[2020-07-26 21:05] VITALS: BP 91/52
[2020-07-27] MEDS: CEFTRIAXONE PMX 2GM/50ML 50 ML IVPB SCH (00:36)
[2020-07-27 00:55] VITALS: BP 94/55
[2020-07-27] MEDS: ENOXAPARIN 40 MG/0.4 ML SQ SCH (01:18)
[2020-07-27] MEDS: ARTIFICIAL TEARS 15 DROP/ML BOTTLE OP SCH ×4 (05:30→19:58)
[2020-07-27 07:42] VITALS: BP 96/58
[2020-07-27] MEDS: OMEPRAZOLE 20 MG CAPSULE.DR PO SCH (09:17)
[2020-07-27] MEDS: LEVOTHYROXINE 100 MCG TABLET PO SCH (09:18)
[2020-07-27] MEDS: TAMSULOSIN 0.4 MG CAP.ER.24H PO SCH (09:18)
[2020-07-27] MEDS: LIOTHYRONINE 5 MCG TABLET PO SCH (09:18)
[2020-07-27] MEDS: CHOLECALCIFEROL 1,000 UNIT TABLET PO SCH (09:18)
[2020-07-27] MEDS: MULTIVITAMIN 1 TABLET PO SCH (09:18)
[2020-07-27] MEDS: FERROUS GLUCONATE 324 MG TABLET PO SCH ×2 (09:18→15:48)
[2020-07-27 12:16] VITALS: BP 93/58
[2020-07-27 19:47] VITALS: BP 94/51
[2020-07-27] MEDS: ACETAMINOPHEN 325 MG TABLET PO PRN (19:57)
[2020-07-27] MEDS: ATORVASTATIN 20 MG TABLET PO SCH (19:57)
[2020-07-28 01:04] VITALS: BP 104/62
[2020-07-28] MEDS: CEFTRIAXONE PMX 2GM/50ML 50 ML IVPB SCH (01:06)
[2020-07-28] MEDS: ENOXAPARIN 40 MG/0.4 ML SQ SCH (01:30)
[2020-07-28] MEDS: ARTIFICIAL TEARS 15 DROP/ML BOTTLE OP SCH ×4 (05:01→20:49)
[2020-07-28] MEDS: LEVOTHYROXINE 100 MCG TABLET PO SCH (05:02)
[2020-07-28 08:02] VITALS: BP 98/56
[2020-07-28 09:02] LABS: ALBUMIN 1.8 g/dL (3.4-5.0); ANION GAP 4 mmol/L (5-15); CALCIUM 8.2 mg/dL (8.5-10.1); CHLORIDE 107 mmol/L (98-107)
[2020-07-28 09:03] LABS: BASOPHILS % (AUTO) 1 % (0-1); EOSINOPHILS % (AUTO) 2 % (1-7); LYMPHOCYTES % (AUTO) 18 % (22-44); MEAN CORPUSCULAR HEMOGLOBIN 32.2 pg (27.0-34.8); MEAN CORPUSCULAR HGB CONC 34.1 g/dL (32.4-35.8); MONOCYTES % (AUTO) 5 % (2-9); NEUTROPHILS % (AUTO) 74 % (42-75); PLATELET COUNT 334 x10^3/uL (130-400); RED BLOOD COUNT 3.25 x10^6/uL (3.82-5.3); RED CELL DISTRIBUTION WIDTH 17.9 % (9.6-15.2)
[2020-07-28 09:06] LABS: ALANINE AMINOTRANSFERASE 11 U/L (12-78); ALKALINE PHOSPHATASE 70 U/L (45-117); BILIRUBIN,TOTAL 0.3 mg/dL (0.2-1.0); CREATININE 0.81 mg/dL (0.55-1.02); TOTAL PROTEIN 6.1 g/dL (6.4-8.2)
[2020-07-28 09:08] LABS: MD NO
[2020-07-28] MEDS: CHOLECALCIFEROL 1,000 UNIT TABLET PO SCH (10:33)
[2020-07-28] MEDS: OMEPRAZOLE 20 MG CAPSULE.DR PO SCH (10:33)
[2020-07-28] MEDS: FERROUS GLUCONATE 324 MG TABLET PO SCH ×2 (10:33→16:50)
[2020-07-28] MEDS: LIOTHYRONINE 5 MCG TABLET PO SCH (10:33)
[2020-07-28] MEDS: MULTIVITAMIN 1 TABLET PO SCH (10:33)
[2020-07-28] MEDS: TAMSULOSIN 0.4 MG CAP.ER.24H PO SCH (10:33)
[2020-07-28] MEDS: ASPIRIN 81 MG TABLET EC PO SCH (10:33)
[2020-07-28 13:18] VITALS: BP 100/54
[2020-07-28] MEDS: CEPHALEXIN 250 MG CAPSULE PO SCH ×2 (16:50→20:49)
[2020-07-28] MEDS: ATORVASTATIN 20 MG TABLET PO SCH (20:49)
[2020-07-28] MEDS: ACETAMINOPHEN 325 MG TABLET PO PRN (21:43)
[2020-07-28 22:18] VITALS: BP 98/60
[2020-07-29 03:07] VITALS: BP 117/79
[2020-07-29] MEDS: ARTIFICIAL TEARS 15 DROP/ML BOTTLE OP SCH ×4 (05:45→20:06)
[2020-07-29] MEDS: ENOXAPARIN 40 MG/0.4 ML SQ SCH (05:45)
[2020-07-29] MEDS: LEVOTHYROXINE 100 MCG TABLET PO SCH ×2 (05:45→05:46)
[2020-07-29] MEDS: CEPHALEXIN 250 MG CAPSULE PO SCH ×4 (05:45→20:06)
[2020-07-29 08:23] VITALS: BP 131/72
[2020-07-29] MEDS: MULTIVITAMIN 1 TABLET PO SCH (09:13)
[2020-07-29] MEDS: CHOLECALCIFEROL 1,000 UNIT TABLET PO SCH (09:13)
[2020-07-29] MEDS: TAMSULOSIN 0.4 MG CAP.ER.24H PO SCH (09:13)
[2020-07-29] MEDS: FERROUS GLUCONATE 324 MG TABLET PO SCH ×2 (09:13→16:54)
[2020-07-29] MEDS: OMEPRAZOLE 20 MG CAPSULE.DR PO SCH (09:13)
[2020-07-29] MEDS: LIOTHYRONINE 5 MCG TABLET PO SCH (09:13)
[2020-07-29 15:09] VITALS: BP 111/62
[2020-07-29] MEDS: ACETAMINOPHEN 325 MG TABLET PO PRN (18:39)
[2020-07-29 20:02] VITALS: BP 113/67
[2020-07-29] MEDS: ATORVASTATIN 20 MG TABLET PO SCH (20:06)
[2020-07-30] VITALS (7 sets, daily range): BP systolic 86–124; BP diastolic 57–74
[2020-07-30] MEDS: CEPHALEXIN 250 MG CAPSULE PO SCH ×4 (06:17→21:17)
[2020-07-30] MEDS: ENOXAPARIN 40 MG/0.4 ML SQ SCH (06:18)
[2020-07-30] MEDS: LEVOTHYROXINE 100 MCG TABLET PO SCH (06:18)
[2020-07-30] MEDS: ARTIFICIAL TEARS 15 DROP/ML BOTTLE OP SCH ×4 (06:20→21:17)
[2020-07-30] MEDS: CHOLECALCIFEROL 1,000 UNIT TABLET PO SCH (08:31)
[2020-07-30] MEDS: FERROUS GLUCONATE 324 MG TABLET PO SCH ×2 (08:31→16:36)
[2020-07-30] MEDS: OMEPRAZOLE 20 MG CAPSULE.DR PO SCH (08:31)
[2020-07-30] MEDS: TAMSULOSIN 0.4 MG CAP.ER.24H PO SCH (08:31)
[2020-07-30] MEDS: MULTIVITAMIN 1 TABLET PO SCH (08:31)
[2020-07-30] MEDS: LIOTHYRONINE 5 MCG TABLET PO SCH (08:31)
[2020-07-30] MEDS: ACETAMINOPHEN 325 MG TABLET PO PRN (11:15)
[2020-07-30 12:42] LABS: FREE T4 (FREE THYROXINE) 0.74 ng/dL (0.76-1.46)
[2020-07-30] MEDS: ATORVASTATIN 20 MG TABLET PO SCH (21:17)
[2020-07-31 00:01] VITALS: BP 127/68
[2020-07-31] MEDS: ARTIFICIAL TEARS 15 DROP/ML BOTTLE OP SCH ×4 (06:02→21:05)
[2020-07-31] MEDS: CEPHALEXIN 250 MG CAPSULE PO SCH ×4 (06:02→21:05)
[2020-07-31] MEDS: LEVOTHYROXINE 100 MCG TABLET PO SCH (06:02)
[2020-07-31] MEDS: ENOXAPARIN 40 MG/0.4 ML SQ SCH (06:04)
[2020-07-31] MEDS: OMEPRAZOLE 20 MG CAPSULE.DR PO SCH (08:00)
[2020-07-31] MEDS: FERROUS GLUCONATE 324 MG TABLET PO SCH ×2 (08:00→16:15)
[2020-07-31] MEDS: CHOLECALCIFEROL 1,000 UNIT TABLET PO SCH (08:00)
[2020-07-31] MEDS: LIOTHYRONINE 5 MCG TABLET PO SCH (08:00)
[2020-07-31] MEDS: ASPIRIN 81 MG TABLET EC PO SCH (08:00)
[2020-07-31] MEDS: MULTIVITAMIN 1 TABLET PO SCH (08:01)
[2020-07-31 08:02] VITALS: BP 114/65
[2020-07-31 15:38] VITALS: BP 100/58
[2020-07-31 19:27] VITALS: BP 116/73
[2020-07-31] MEDS: ATORVASTATIN 20 MG TABLET PO SCH (21:05)
[2020-08-01 00:08] VITALS: BP 104/64
[2020-08-01 05:34] LABS: CREATININE 0.66 mg/dL (0.55-1.02)
[2020-08-01] MEDS: LEVOTHYROXINE 100 MCG TABLET PO SCH (05:59)
[2020-08-01] MEDS: ARTIFICIAL TEARS 15 DROP/ML BOTTLE OP SCH ×4 (05:59→20:40)
[2020-08-01] MEDS: CEPHALEXIN 250 MG CAPSULE PO SCH ×4 (05:59→20:39)
[2020-08-01] MEDS: ENOXAPARIN 40 MG/0.4 ML SQ SCH (06:00)
[2020-08-01 07:32] VITALS: BP 100/64
[2020-08-01] MEDS: CHOLECALCIFEROL 1,000 UNIT TABLET PO SCH (08:00)
[2020-08-01] MEDS: OMEPRAZOLE 20 MG CAPSULE.DR PO SCH (08:00)
[2020-08-01] MEDS: LIOTHYRONINE 5 MCG TABLET PO SCH (08:00)
[2020-08-01] MEDS: MULTIVITAMIN 1 TABLET PO SCH (08:00)
[2020-08-01] MEDS: FERROUS GLUCONATE 324 MG TABLET PO SCH ×2 (08:01→16:18)
[2020-08-01 12:09] VITALS: BP 99/61
[2020-08-01 20:07] VITALS: BP 99/64
[2020-08-01] MEDS: ATORVASTATIN 20 MG TABLET PO SCH (20:39)
[2020-08-02 00:10] VITALS: BP 103/62
[2020-08-02] MEDS: CEPHALEXIN 250 MG CAPSULE PO SCH (05:48)
[2020-08-02] MEDS: ENOXAPARIN 40 MG/0.4 ML SQ SCH (05:49)
[2020-08-02] MEDS: ARTIFICIAL TEARS 15 DROP/ML BOTTLE OP SCH ×2 (05:49→11:00)
[2020-08-02 07:23] VITALS: BP 97/60
[2020-08-02] MEDS ORDERED: CEFTRIAXONE PMX 1GM/50ML 50 ML IV ONE (07:30)
[2020-08-02] MEDS: LIOTHYRONINE 5 MCG TABLET PO SCH (08:11)
[2020-08-02] MEDS: FERROUS GLUCONATE 324 MG TABLET PO SCH (08:12)
[2020-08-02] MEDS: LEVOTHYROXINE 100 MCG TABLET PO SCH (08:12)
[2020-08-02] MEDS: CHOLECALCIFEROL 1,000 UNIT TABLET PO SCH (08:12)
[2020-08-02] MEDS: MULTIVITAMIN 1 TABLET PO SCH (08:12)
[2020-08-02] MEDS: OMEPRAZOLE 20 MG CAPSULE.DR PO SCH (08:12)
[2020-08-02] MEDS ORDERED: LIOT5TAB10 PO ×2 (10:08→10:11)
== END 2020-08-02 12:15 | disposition home health service (06) | DRG 698 ==
LOC: ED 07-26 01:29 → 3N 07-26 01:30
PROVIDERS: ADMIT Internal Medicine; ATTEND Hospitalist
PROC: 0T9B70Z Drainage of Bladder with Drainage Device, Via Natural or Artificial Opening (ICD-10-PCS; principal; 2020-07-26)
DX: T83.518A Infection and inflammatory reaction due to other urinary catheter, initial encounter (principal); G93.41 Metabolic encephalopathy; E03.5 Myxedema coma; E87.1 Hypo-osmolality and hyponatremia; E27.40 Unspecified adrenocortical insufficiency; N39.0 Urinary tract infection, site not specified; K21.9 Gastro-esophageal reflux disease without esophagitis; Y84.6 Urinary catheterization as the cause of abnormal reaction of the patient, or of later complication, without mention of misadventure at the time of the procedure; Y92.89 Other specified places as the place of occurrence of the external cause; Z20.822 Contact with and (suspected) exposure to COVID-19; B96.20 Unspecified Escherichia coli [E. coli] as the cause of diseases classified elsewhere; E78.5 Hyperlipidemia, unspecified; F32.9 Major depressive disorder, single episode, unspecified; I35.0 Nonrheumatic aortic (valve) stenosis; M06.9 Rheumatoid arthritis, unspecified
CPT/HCPCS: 36415; 71045; 80053; 80061; 81001; 82533; 82565; 83036; 83605; 83735; 84100; 84439; 84443; 84481; 85025; 87040; 87077; 87086; 87186; 87635; 93005; G0378; J0696; J1650; J7030; J7512

== ENCOUNTER 2020-08-07 09:42 | Emergency (ER) | payer MEDICARE, OTHER ==
[~2020-08-07] VITALS: Ht 160 cm; Wt 54.5 kg
[~2020-08-07 09:42] MED LIST changes: +LIOT5TAB10 PO
[2020-08-07] MEDS ORDERED: PLEASE ENTER HEIGHT AND WEIGHT MC SCH (10:00)
[2020-08-07] MEDS ORDERED: SODIUM CHLORIDE FLUSH 10ML SYR IVF ONE (10:00)
[2020-08-07 10:35] LABS: ALANINE AMINOTRANSFERASE 15 U/L (12-78); ALBUMIN 1.8 g/dL (3.4-5.0); ANION GAP 9 mmol/L (5-15); CALCIUM 7.7 mg/dL (8.5-10.1); CHLORIDE 100 mmol/L (98-107)
[2020-08-07 10:37] LABS: ALKALINE PHOSPHATASE 68 U/L (45-117); BILIRUBIN,TOTAL 0.6 mg/dL (0.2-1.0); TOTAL PROTEIN 6.1 g/dL (6.4-8.2)
[2020-08-07 10:47] LABS: BASOPHILS % (AUTO) 1 % (0-1); EOSINOPHILS % (AUTO) 2 % (1-7); LYMPHOCYTES % (AUTO) 15 % (22-44); MEAN CORPUSCULAR HEMOGLOBIN 32.8 pg (27.0-34.8); MEAN PLATELET VOLUME 7.9 fL (7.4-10.4); MONOCYTES % (AUTO) 8 % (2-9); NEUTROPHILS % (AUTO) 75 % (42-75); PLATELET COUNT 312 x10^3/uL (130-400); RED BLOOD COUNT 3.14 x10^6/uL (3.82-5.3); RED CELL DISTRIBUTION WIDTH 17.9 % (9.6-15.2)
[2020-08-07 10:49] LABS: MD NO
--- NOTE | 2020-08-07 10:51 | NUR ---
This pt is coming from [facility]. She is A&Ox3, states it's 2000, unknown baseline. She presents with bennett cath, unsure when it was placed but knows she "couldn't pee." 700mls of dark, foul smelling urine drained upon arrival. This RN replaced sani-lock to right leg as it had fallen off left leg. Pt's O2 sat noted to drop to 88% when she was layed flat for linen change, MD Castillo made aware, CXR ordered, 2L NC O2 administered. Pt connected to all monitors, bedrails up x2, call light in reach. Pt sleeping, visible chest rise and fall.
[2020-08-07 11:00] LABS: MICROSCOPIC AUTO
[2020-08-07] MEDS ORDERED: OMNIPAQUE 350 MG/ML, 100ML BOTTLE ONE (11:22)
[2020-08-07] MEDS ORDERED: SODIUM CHLORIDE 0.9% 1,000ML IVBOLUS ONE (12:00)
--- NOTE | 2020-08-07 12:14 | NUR ---
Per granddaughter, "she needs O2 walking or laying flat. She can tell you anything from 40 years ago, but not from 30 minutes ago. She's been in the home for a year now, she's had the catheter since mid to late summer, obviously it's been changed. In her mind she can't get up and move, we all know she can."
--- NOTE | 2020-08-07 14:04 | NUR ---
[facility] called for safe ride home.
[2020-08-07 14:12] VITALS: BP 113/74
--- NOTE | 2020-08-07 14:41 | NUR ---
Pt changed into clothes. Awaiting ride from [facility].
[2020-08-08] MEDS ORDERED: POLY17PO29 PO (16:00)
[2020-08-08] MEDS ORDERED: TAMS-11 PO (16:00)
== END 2020-08-07 14:56 | disposition home or self-care (01) ==
LOC: ED 10:10
DX: R10.84 Generalized abdominal pain (principal); E03.9 Hypothyroidism, unspecified; M19.90 Unspecified osteoarthritis, unspecified site
CPT/HCPCS: 36415; 71045; 74177; 80053; 81001; 83690; 85025; 87040; 87086; 96360; 99285; J7030; Q9967

== ENCOUNTER 2020-08-15 14:34 | Emergency (ER) | payer MEDICARE, OTHER ==
[~2020-08-15] VITALS: Ht 157.5 cm; Wt 55.0 kg
[~2020-08-15 14:34] MED LIST changes: +POLY17PO29 PO
--- NOTE | 2020-08-15 15:07 | NUR ---
Pt presents to the ER today for abd pain. States she hasn't pooped in "a day or so." Pt requesting a laxative, states "I used to take milk of mag and it helped with the pain."
[2020-08-15 15:14] LABS: BASOPHILS % (AUTO) 0 % (0-1); EOSINOPHILS % (AUTO) 4 % (1-7); LYMPHOCYTES % (AUTO) 12 % (22-44); MEAN CORPUSCULAR HEMOGLOBIN 33.2 pg (27.0-34.8); MEAN CORPUSCULAR HGB CONC 34.2 g/dL (32.4-35.8); MONOCYTES % (AUTO) 3 % (2-9); NEUTROPHILS % (AUTO) 81 % (42-75); PLATELET COUNT 318 x10^3/uL (130-400); RED BLOOD COUNT 2.92 x10^6/uL (3.82-5.3); RED CELL DISTRIBUTION WIDTH 18.5 % (9.6-15.2)
[2020-08-15 15:23] LABS: ALBUMIN 1.8 g/dL (3.4-5.0); ANION GAP 6 mmol/L (5-15); CALCIUM 7.4 mg/dL (8.5-10.1); CHLORIDE 104 mmol/L (98-107)
--- NOTE | 2020-08-15 15:25 | NUR ---
This RN called [facility], "she doesn't have a laxative odered but I can get that from the doc, no problem. She has miralax ordered PRN, but hasn't asked for it and when we offer it she says 'no, I want to go to the hospital.'" MD Zamarripa made aware.
[2020-08-15 15:26] LABS: ALANINE AMINOTRANSFERASE 14 U/L (12-78); ALKALINE PHOSPHATASE 64 U/L (45-117); BILIRUBIN,TOTAL 0.6 mg/dL (0.2-1.0); CREATININE 0.97 mg/dL (0.55-1.02); TOTAL PROTEIN 5.9 g/dL (6.4-8.2)
[2020-08-15 15:46] LABS: MD NO
--- NOTE | 2020-08-15 16:18 | NUR ---
Pt sleeping, visible chest rise and fall.
[2020-08-15 16:22] LABS: MICROSCOPIC INDICATED
[2020-08-15] MEDS ORDERED: CEFDINIR 300 MG CAPSULE PO ONE (17:30)
[2020-08-15] MEDS ORDERED: CEFDINIR 300 MG CAPSULE ONE (17:31)
--- NOTE | 2020-08-15 17:35 | NUR ---
Pt requesting laxative, Clif HADLEY PA made aware. Pt to be d/c'd with RX.
--- NOTE | 2020-08-15 17:48 | NUR ---
Per [facility], no ride available at this time. This RN will figure out safe ride home.
--- NOTE | 2020-08-15 18:05 | NUR ---
[facility] to be safe ride home.
--- NOTE | 2020-08-15 18:13 | NUR ---
Pt to bathroom with assitance.
[2020-08-15 18:45] VITALS: BP 108/76
--- NOTE | 2020-08-15 18:48 | NUR ---
Pt able to have BM. This RN noticed lindy blood in stool. Clif HADLEY PA back to assess pt. Per Clif, pt needs to keep stool soft and do sits baths, pt made aware of this as part of d/c education. Pt also obtained skin tear on left hand from tp dispenser while wiping self. Clif HADLEY made aware. This RN cleaned and dressed wound prior to d/c. Pt d/c with [facility].
== END 2020-08-15 18:51 | disposition home or self-care (01) ==
LOC: ED 15:50
DX: N30.00 Acute cystitis without hematuria (principal); G89.29 Other chronic pain; R10.84 Generalized abdominal pain; K59.00 Constipation, unspecified; E87.1 Hypo-osmolality and hyponatremia; E03.9 Hypothyroidism, unspecified; K21.9 Gastro-esophageal reflux disease without esophagitis
CPT/HCPCS: 36415; 74022; 80053; 81001; 83690; 85025; 87077; 87086; 87186; 93005; 99285

== ENCOUNTER 2020-08-22 10:11 | Emergency (ER) | payer MEDICARE, OTHER ==
[~2020-08-22] VITALS: Ht 160 cm; Wt 55.0 kg
--- NOTE | 2020-08-22 10:29 | NUR ---
REPORT TAKEN FROM GUILLERMO SANTOS, PT A&O TO PERSON, PLACE AND TIME. 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 ALL MONITORS IN PLACE, CALL LIGHT IN REACH. AWAITING MD AND ORDERS.
[2020-08-22 11:18] LABS: BASOPHILS % (AUTO) 1 % (0-1); EOSINOPHILS % (AUTO) 7 % (1-7); LYMPHOCYTES % (AUTO) 15 % (22-44); MEAN CORPUSCULAR HEMOGLOBIN 33.1 pg (27.0-34.8); MONOCYTES % (AUTO) 6 % (2-9); NEUTROPHILS % (AUTO) 71 % (42-75); PLATELET COUNT 328 x10^3/uL (130-400); RED BLOOD COUNT 3.09 x10^6/uL (3.82-5.3); RED CELL DISTRIBUTION WIDTH 18.6 % (9.6-15.2)
--- NOTE | 2020-08-22 11:19 | NUR ---
pablo at bedside for EKG. this RN spoke with MD Frausto, per TP RN, pt's urine culture from most recent visit (08/15/20) pt was switched from omnicef to macrobid to meet urine susceptibility. this is reflected on pt's updated med rec from assisted living. per MD, no repeat urine sample needed. pt is on all monitors, pt a&o, resps even and unlabored, call light in reach. awaiting cxr and lab results at this time.
[2020-08-22 11:21] LABS: MD NO
[2020-08-22 11:29] LABS: ALANINE AMINOTRANSFERASE 10 U/L (12-78); ANION GAP 6 mmol/L (5-15); CALCIUM 7.5 mg/dL (8.5-10.1); CHLORIDE 106 mmol/L (98-107); CREATININE 0.92 mg/dL (0.55-1.02)
[2020-08-22 11:33] LABS: ALKALINE PHOSPHATASE 53 U/L (45-117); BILIRUBIN,TOTAL 0.4 mg/dL (0.2-1.0); TOTAL PROTEIN 5.9 g/dL (6.4-8.2)
--- NOTE | 2020-08-22 12:30 | NUR ---
ALL RESULTS REVIEWED BY MAYANK GRIER DC ORDERS RECEIVED. PER MD REPEAT UA NOT NEEEDED, URINE IS CLEAR YELLOW DRAINING FREELY FROM PEDRAZA. PT A&O, RESPS EVEN AND UNLABORED. PT HAS NO COMPLAINT AT THIS TIME.
[2020-08-22 12:34] VITALS: BP 106/50
--- NOTE | 2020-08-22 14:00 | NUR ---
PT DISCHARGED BY TASK RN LU, WRITTEN/VERBAL DC INSTRUCTIONS GIVEN. PT REFUSED TO GET BACK INTO OWN CLOTHING, [facility]. CLOTHING BAGGED AND GIVEN TO PT'S TRANSPORT TO TAKE HOME WITH PT. PT TRANSPORTED BACK TO [facility] BY FACILITY TRANSPORT STAFF. PT A&O, RESPS EVEN AND UNLABORED, NADN AT TRANSPORT.
== END 2020-08-22 14:04 | disposition home or self-care (01) ==
LOC: ED 10:41
DX: R10.84 Generalized abdominal pain (principal); J98.11 Atelectasis; R06.02 Shortness of breath; R94.31 Abnormal electrocardiogram [ECG] [EKG]
CPT/HCPCS: 36415; 71045; 80053; 83880; 85025; 93005; 99285

== ENCOUNTER 2020-09-24 15:55 | Emergency (ER) | payer MEDICARE, OTHER ==
[~2020-09-24] VITALS: Ht 160 cm; Wt 115.0 kg
[~2020-09-24 15:55] MED LIST changes: -POLY17PO29 PO; +POLY17PO50 PO
[2020-09-24 16:00] VITALS: BP 107/62
--- NOTE | 2020-09-24 16:30 | NUR ---
85 YO F JAMES FROM [facility] AFTER HOME HEALTH NURSE MADE RENEEIPLE ATTEMTPS TO PLACE PEDRAZA ( PATIENT WITH CHRONIC PEDRAZA FOR RETENTION). PATIENT ATTACHED TO BP, HR, AND O2 MONITORS. EVALUATED PATIENT AND ORDERED PEDRAZA INSERTION. PEDRAZA INSERTED BY THIS RN WITH ASSISTANCE OF PRINCESS LI. PATIENT POSITIONED TO COMFORT.
--- NOTE | 2020-09-24 16:30 | NUR ---
PEDRAZA INSERTED WITH APPROX 50 ML OF CLEAR YELLOW URINE DRAINING.
--- NOTE | 2020-09-24 17:45 | NUR ---
PRECEPTOR RN: PT TRANSFERRED TO [facility] FOR TRANSPORT BACK HOME. VSS.
== END 2020-09-24 17:50 | disposition home or self-care (01) ==
LOC: ED 16:05
DX: T83.098A Other mechanical complication of other urinary catheter, initial encounter (principal); M19.90 Unspecified osteoarthritis, unspecified site; E03.9 Hypothyroidism, unspecified; K21.9 Gastro-esophageal reflux disease without esophagitis; Z87.891 Personal history of nicotine dependence
CPT/HCPCS: 51702; 99284